=== PATIENT | female | born 2000 | race Caucasian/White ===

== ENCOUNTER 2021-03-18 06:20 | Observation (INO) | payer OTHER, SELFPAY ==
[2021-03-18] VITALS (11 sets, daily range): BP systolic 97–145; BP diastolic 54–92; PULSE 76–127; RESP 14–18; TEMP 36.3–37.1; O2SAT 95–99; BMI 25.2
--- NOTE | 2021-03-18 06:31 | CT_ITS ---
STUDY: CT ABDOMEN AND PELVIS WITH CONTRAST REASON FOR EXAM: Female, 20 years old. RLQ abd pain RADIATION DOSAGE (If Supplied By Facility): CTDIvol = ( 14.31 ) mGy, DLP = ( 623.54 ) mGycm TECHNIQUE: Transaxial images were obtained from the dome of the diaphragm to the symphysis pubis without oral contrast. IV 100mL Isovue-370 was administered. Sagittal and coronal images were reconstructed. Individualized dose optimization techniques were used for this CT. COMPARISON: None. FINDINGS: The visualized lung bases are unremarkable. The visualized portions of the heart are within normal limits. Normal liver. Normal gallbladder and extrahepatic biliary system. Normal spleen. Normal pancreas. Normal bilateral adrenal glands. Normal right kidney. Normal left kidney. Normal visualized stomach. Normal small intestine. Normal colon. There is a tubular, thick-walled appendix (>7mm), consistent with acute appendicitis. Normal abdominal aorta. Normal inferior vena cava. Normal retroperitoneum. Normal urinary bladder. Normal visualized uterus. Normal abdominal wall. Normal osseous structures. CT/Abdomen/Pelvis W IV Cont ONLY IMPRESSION: Acute, uncomplicated appendicitis. Electronically Signed: Magdi Patricio MD at 7:26 EDT Tel , Service support ,
--- NOTE | 2021-03-18 06:32 | EDS_ITS ---
HPI HPI - GI History of Present Illness Chief Complaint: Abd Pain Informant: patient Abdominal Pain/Flank Pain Onset: Today Context: Gradual Onset Timing: Continuous Quality: Aching, Cramping and Sharp Location: RLQ Current Severity: Mild Maximum Severity: Mild Worsened by: Not Worsened By Nothing Relieved by: Not Relieved By Nothing Nausea/Vomiting/Emesis GI Symptom: Positive for Nausea; Negative for Vomiting Onset: Today Severity: Mild Diarrhea/Melena/Hematochezia GI Symptom: Positive for Diarrhea; Negative for Melena and Hematochezia Onset: Today Associated Symptoms Associated Symptoms: Negative for Dysuria, Frequency, Hematuria and Urgency Narrative Narrative: Just prior to arrival she developed right lower quadrant sharp and cramping abdominal pain. L in the right lower quadrant. Associated nausea. Mild loose stools. No melena. No fever. No dysuria. Last menstrual period was a month ago. She is never been she is G0, P0. And states she is not sexually active. She is never had any abdominal surgeries. She is concerned she might have an appendicitis.20-year-old female Prior similar symptoms: No Recent Illness/Hospitalization: No PFSH PFSH Medical History History of syncope Home Medications bupropion HCl [Wellbutrin XL] 150 mg PO DAILY 03/18/21 [History Last Taken Unknown] cyproheptadine 4 mg PO QHS 03/18/21 [History Last Taken Unknown] norgestimate-ethinyl estradiol [Harmony] 1 tab PO DAILY 03/18/21 [History Last Taken Unknown] sertraline [Zoloft] 100 mg PO DAILY 03/18/21 [History Last Taken Unknown] Allergy/AdvReac Type Severity Reaction Status Date / Time No Known Allergies Allergy Verified 03/18/21 06:28 Social History Smoking Status: Never smoker ROS ROS ED ROS Narrative Right lower quadrant abdominal pain. Loose stools. Review of Systems ROS Unobtainable: Denies due to encephalopathy Constitutional Constitutional ED: Denies chills or fever(s) ENT ENT ED: Denies ear pain or sore throat Cardiovascular Cardiovascular: Denies chest pain Respiratory/Chest Respiratory/Chest: Denies cough or dyspnea Gastrointestinal Gastrointestinal: Reports abdominal pain and diarrhea; Denies nausea or vomiting Genitourinary Genitourinary ED: Denies dysuria or hematuria Musculoskeletal Musculoskeletal: Denies myalgias Integumentary Denies rash Neurologic Neurologic: Denies headache(s) Psychiatric Psychiatric: Denies depression Endocrine Endocrinology: Denies polyuria Hematologic/Lymphatic Hematologic/Lymphatic: Denies easy bruising Allergic/Immunologic Allergic/Immunologic ED: Denies urticaria EXAM Physical Exam Narrative Exam Narrative: Well-appearing 20-year-old female. Vital signs are stable. She is afebrile. She does look septic or toxic. Exam normal except abdominal exam she has right lower quadrant tenderness. There is no rebound, guarding or rigidity. There is no Brenner sign. Both upper quadrant left lower quadrants are completely unremarkable nontender. There is no hernia or mass. No signs of obstruction. Abdomen is soft with positive bowel sounds. Const Vital Signs: 03/18/21 06:22 Temperature 97.8 F Temperature Source Temporal Pulse Rate 86 Respiratory Rate 17 Blood Pressure 126/85 H Blood Pressure Mean 98 Pulse Ox 97 Oxygen Delivery Method Room Air Positive well nourished and well developed; Negative for obese, cachectic, contractures or unkempt General Appearance ED: well developed and NAD; Negative for unkempt, cachectic, contractures or pallor Nutritional Appearance: Negative for cachectic or obese HEENT Reports moist mucous membranes normocephalic and atraumatic Eyes PERRL and EOMs intact bilaterally Neck no lymphadenopathy, supple and no JVD General: Negative for tenderness Resp normal respiratory effort and clear to auscultation bilaterally Auscultation: Negative for rales, rhonchi or wheezes Cardio regular rate, regular rhythm, S1 normal heart sound, S2 normal heart sound and no murmurs GI non-distended and no masses; Negative for non-tender GI Narrative: Tenderness right lower quadrant only. Inspection: Negative for abdominal distention Auscultation: normoactive bowel sounds; Negative for hyperactive bowel sounds or hypoactive bowel sounds Palpation: soft and tender; Negative for guarding, rigid or rebound tenderness present Back/Spine no CVA tenderness Extremity full ROM General Extremety ED: Negative for edema or tenderness General Extremity: Negative for edema Neuro moves all extremities Sensorium / Orientation: alert, oriented to person, oriented to place and oriented to time; Negative for lethargic or stuporous Motor Exam: strength 5/5 throughout Psych mental status grossly normal Appearance: Negative for unkempt Skin no wounds General Skin Exam: Negative for jaundice or pallor Lesions: no lesions Rashes: no rashes MDM MDM MDM Narrative Medical decision making narrative: 20-year-old female with less than a half an hour of right lower quadrant abdominal pain. Associated nausea and diarrhea. Appendicitis versus UTI versus viral syndrome versus other etiologies. Screening labs and CAT scan being obtained. Repeat exam patient doing well at 7:18 AM. She still has only tenderness to her right lower quadrant. There is no peritoneal signs. She denies discussed her labs so far were still awaiting the UA and the reading of the CAT scan. I spoke with Dr. Qian Dubois on-call for general surgery she will admit the patient and set her up for a laparoscopic appendectomy today. Lab Data Attestation: I reviewed the patient's lab results. Lab results narrative: CBC does show an elevated white count of 15.7. Hemoglobin is 14. Electrolytes unremarkable gap of 8 normal creatinine. Liver enzymes are normal. Serum test is negative. Patient has not urinated as of yet. CAT scan is positive for acute appendicitis is read by the radiologist. Reviewed by me. All test results were discussed with the patient. Labs: Laboratory Results - last 24 hr 03/18/21 03/18/21 03/18/21 06:41 06:41 06:41 WBC 15.7 H RBC 4.90 Hgb 14.3 Hct 41.7 MCV 85.1 MCH 29.2 MCHC 34.3 RDW Std Deviation 45.1 H RDW Coeff of Ezequiel 14.5 Plt Count 225 MPV 9.8 Immature Gran % (Auto) 0.400 Neut % (Auto) 72.3 H Lymph % (Auto) 21.1 Alfalfa % (Auto) 5.2 Eos % (Auto) 0.7 Baso % (Auto) 0.3 Absolute Neuts (auto) 11.3 H Absolute Lymphs (auto) 3.31 Nucleated RBC % 0 Sodium 139 Potassium 3.5 Chloride 108 H Carbon Dioxide 23.0 Anion Gap 8 BUN 8 Creatinine 0.83 Estim Creat Clear Calc 100.37 Est GFR (MDRD) Af Amer 111 Est GFR (MDRD) Non-Af 91 BUN/Creatinine Ratio 9.6 L Glucose 101 Calcium 8.9 Total Bilirubin 0.30 AST 17 ALT 18 Alkaline Phosphatase 80 Total Protein 7.0 Albumin 3.4 Globulin 3.6 Albumin/Globulin Ratio 0.9 Serum , Qual NEGATIVE Radiography Diagnostic Testing: Radiology Impression Abdomen/Pelvis CT 03/18/21 06:31 IMPRESSION: Acute, uncomplicated appendicitis. Electronically Signed: Magdi Patricio MD at 7:26 EDT Tel , Service support , Discharge Plan Triage Chief Complaint: Abd Pain ED Provider: Nick Henry Dx/Rx/DC Orders Clinical Impression: Abdominal pain, Acute appendicitis Prescriptions: No Action norgestimate-ethinyl estradiol [Harmony] 0.25-35 mg-mcg Tablet 1 tab PO DAILY RF: 0 sertraline [Zoloft] 100 mg Tablet 100 mg PO DAILY RF: 0 cyproheptadine 4 mg Tablet 4 mg PO QHS RF: 0 bupropion HCl [Wellbutrin XL] 150 mg Tablet Extended Release 24 Hr 150 mg PO DAILY RF: 0 Disposition Disposition: Acute Care Hospital [facility]
[2021-03-18] MEDS: 0.9% Normal Saline 1,000 ML 1000 ML IV (06:47)
[2021-03-18 06:49] LABS: Absolute Lymphocyte Count 3.31 X10^3/uL (0.83-4.51); Absolute Neutrophil Count 11.3 X10^3/uL (2.0-7.7); Basophil# 0.05 X10^3/uL; Basophil% 0.3 % (0-1); Eosinophil# 0.11 X10^3/uL; Eosinophils% 0.7 % (0-5); Hematocrit 41.7 % (37-47); Hemoglobin 14.3 g/dL (12.0-15.0); Lymphocyte # 3.31 X10^3/ul (0.83-4.51); Lymphocyte % 21.1 % (19-41); Mean Corp Hgb Conc 34.3 g/dL (32-36); Mean Corpuscular Hgb 29.2 pg (27.0-32.0); Mean Corpuscular Volume 85.1 fL (81-99); Mean Platelet Vol. 9.8 fl (6.2-12.0); Monocyte# 0.81 X10^3/uL; Monocyte% 5.2 % (0-10); NRBC Flagged by Analyzer 0 % (0-5); Neutrophil # 11.32 X10^3/uL (2.7-7.7); Neutrophil % 72.3 % (47-70); Platelet Count 225 K/mm3 (150-450); RBC Distribution Width CV 14.5 % (11.6-14.6); RBC Distribution Width SD 45.1 fl (35.1-43.9); White Blood Count 15.7 K/mm3 (4.4-11.0)
[2021-03-18 07:06] LABS: ALB/GLOB Ratio 0.9 RATIO (0.9-2.4); AST(SGOT) 17 U/L (15-37); Alanine Aminotransfer ALT/SGPT 18 U/L (13-56); Albumin, Serum 3.4 g/dL (3.2-5.0); Alkaline Phosphatase 80 U/L (45-117); Anion Gap 8 (5-15); BUN 8 mg/dL (7-18); BUN/Creat Ratio 9.6 RATIO (10-20); Calcium,Total 8.9 mg/dL (8.5-10.1); Chloride 108 mmol/L (98-107); Creatinine, Serum 0.83 mg/dL (0.55-1.02); EST Glomerular Filtration Rate 91 mL/min (>60); Est Glom Filt Rate - Afr Amer 111 mL/min (>60); Estimated Creatinine Clearance 100.37 ml/min; Globulin 3.6 g/dL (2.2-4.2); Glucose 101 mg/dL (74-106); Potassium 3.5 mmol/L (3.5-5.1); Sodium Level 139 mmol/L (136-145)
[2021-03-18 07:16] LABS: Internal QC Validated? YES +Cl - CLEAR BKGD; Pregnancy, Serum, hCG Quali. NEGATIVE Negative
--- NOTE | 2021-03-18 08:24 | PCM.HP.STD ---
HPI - General HPI Narrative PATY QURESHI, is a 20 F who presents with sudden onset of RLQ abdominal pain beginning early this morning. No antecedent symptoms noted. Patient denies fevers. She presented to [facility] ED. Workup - afebrile, elevated WBC of 15.7, CT scan reveals appendicitis. [facility] Medical History History of syncope Home Medications bupropion HCl [Wellbutrin XL] 150 mg PO DAILY 03/18/21 [History Last Taken Unknown] cyproheptadine 4 mg PO QHS 03/18/21 [History Last Taken Unknown] norgestimate-ethinyl estradiol [Harmony] 1 tab PO DAILY 03/18/21 [History Last Taken Unknown] sertraline [Zoloft] 100 mg PO DAILY 03/18/21 [History Last Taken Unknown] Allergy/AdvReac Type Severity Reaction Status Date / Time No Known Allergies Allergy Verified 03/18/21 06:28 Social History Smoking Status: Never smoker Vital Signs Vital Signs Vital Signs: 03/18/21 06:22 Temperature 97.8 F Temperature Source Temporal Pulse Rate 86 Respiratory Rate 17 Blood Pressure 126/85 H Blood Pressure Mean 98 Pulse Ox 97 Oxygen Delivery Method Room Air Weight Weight: 71 kg Body Mass Index (BMI) 25.2 Physical Exam Const no apparent distress Resp normal respiratory effort Cardio regular rate GI soft to palpation Palpation: tender RLQ and Rovsing's sign Extremity normal to inspection and no clubbing, cyanosis or edema Results Lab / Micro Data Result Diagrams: 03/18/21 06:41 03/18/21 06:41 Labs: Laboratory Results - last 24 hr 03/18/21 06:41: WBC 15.7 H, RBC 4.90, Hgb 14.3, Hct 41.7, MCV 85.1, MCH 29.2, MCHC 34.3, RDW Std Deviation 45.1 H, RDW Coeff of Ezequiel 14.5, Plt Count 225, MPV 9.8, Immature Gran % (Auto) 0.400, Neut % (Auto) 72.3 H, Lymph % (Auto) 21.1, Greer % (Auto) 5.2, Eos % (Auto) 0.7, Baso % (Auto) 0.3, Absolute Neuts (auto) 11.3 H, Absolute Lymphs (auto) 3.31, Nucleated RBC % 0 03/18/21 06:41: Sodium 139, Potassium 3.5, Chloride 108 H, Carbon Dioxide 23.0, Anion Gap 8, BUN 8, Creatinine 0.83, Estim Creat Clear Calc 100.37, Est GFR (MDRD) Af Amer 111, Est GFR (MDRD) Non-Af 91, BUN/Creatinine Ratio 9.6 L, Glucose 101, Calcium 8.9, Total Bilirubin 0.30, AST 17, ALT 18, Alkaline Phosphatase 80, Total Protein 7.0, Albumin 3.4, Globulin 3.6, Albumin/Globulin Ratio 0.9 03/18/21 06:41: Serum , Qual NEGATIVE Radiology Impression Abdomen/Pelvis CT 03/18/21 06:31 IMPRESSION: Acute, uncomplicated appendicitis. Electronically Signed: Magdi Patricio MD at 7:26 EDT Tel , Service support , Assessment & Plan Assessment/Plan (1) Acute appendicitis: QUALIFIERS: Acute appendicitis type: unspecified acute appendicitis type Qualified Code(s): K35.80 - Unspecified acute appendicitis PLAN: Plan: To OR for laparoscopic appendectomy I have discussed above with patient and her mother who is present with her. I have counseled them as to the risks of the procedure, including but not limited to: infection, bleeding, perforation, incisional scars, injury to bowel/bladder, injury to any intraabdominal organs, intraabdominal abscess/bleeding, incisional hernias, complications of anesthesia, etc. - they understand. The patient wishes to proceed. I have answered all their questions and they have no further questions
--- NOTE | 2021-03-18 09:40 | APP_PTH ---
PATIENT: PATY QURESHI LOC: [facility] U#:[id number] AGE/SX: ROOM: MS316 RE03/18/[address]: Dr. Qian Dubois MD : 2000 BED: 1 DIS: 03/18/2021 SPEC #: [id number] RECD: 03/19/21 07:40 STATUS: KATIA KENNEDY #: [id number] WILFREDO: 03/18/21 09:[address]: Qian Dubois DEPT: SURGICAL PATHOLOGY RECD BY: Myriam Membreno Tissues: Appendix, NOS Procedures: Surgery Specimen Level III HEADER OPERATION: Laparoscopic appendectomy PRE-OP DIAGNOSIS: Acute appendicitis TISSUE SUBMITTED: Appendix MICROSCOPIC DIAGNOSIS Appendix, appendectomy: Acute appendicitis. AM:adrián 03/20/2021 MICROSCOPIC DESCRIPTION Slides are reviewed. GROSS DESCRIPTION Received in fixative is one container labeled with the patient's name and designated appendix. The specimen consists of an appendix measuring 9 cm in length and 0.7 cm in diameter. No gross perforations are evident. No mass lesion is identified. Pipe Machine Operator sections are submitted in two cassettes. / AM:adrián 03/19/21 TC:2 [facility]: [id number]
[2021-03-18 10:01] LABS: Mucous, Urine 0 SEEN /hpf (<or=2+); Red Blood Cells-Urine 0 SEEN /hpf (0-5); White Blood Cells 0 SEEN /hpf (0-5)
[2021-03-18 10:05] LABS: Color, Urine Yellow (Yellow); Glucose, Dipstick Normal (Normal); Ketone-Dipstick Negative (Negative); Leukocyte Esterase-Dipstick Negative /ul (Negative); Nitrite-Dipstick Negative (Negative); Occult Blood-Urine Negative /ul (Negative); Protein-Dipstick Negative (Negative); Urine Bilirubin Dipstick Negative (Negative); Urine Clarity Clear (Clear); Urine Urobilinogen Normal (Normal); Urine pH 6.5 (5.0 - 8.0)
[2021-03-18 10:19] LABS: Bacteria RARE /hpf (None Seen); Squamous Epithelial Cells - UA 0-5 SEEN /hpf (5-10)
[2021-03-18] MEDS: Lidocaine 1% /Epi 1:100 (20ml) 20 ML Vial (10:40)
--- NOTE | 2021-03-18 11:08 | OP.PCM_ITS ---
Report of Operation Date of Procedure: 03/18/21 Pre-Operative Diagnosis: acute appendicitis by CT scan Post-Operative Diagnosis: same Surgery/Procedure Performed:: laparoscopic appendectomy Description of Surgical Findings:: injected appearing appendix, cloudy peritoneal fluid in pelvis Surgeon: Qian Dubois Type of Anesthesia: General Anesthesiologist: Tony Mckee Specimen's removed: appendix Drains: none Estimated Blood Loss (mL): < 10 ml Fluids Replaced: 700 ml Description of Procedure: After informed consent was obtained, the patient was brought into the Operating Room. Appropriate time out protocol was followed. The patient was placed in the supine position on the operating table. The patient was then placed under general anesthesia by the anesthesia provider. The patient?s abdomen was then prepped with a sterile surgical skin preparation and sterile surgical drapes were placed. The infraumbilical skin fold was grasped with penetrating towel clamps and the skin and subcutaneous tissues were infiltrated with 1% xylocaine with epinephrine. A incision was then made with a 15 blade scalpel. A Veress needle was then inserted into the intraabdominal cavity and checked to be in the proper position with a normal saline drop test. A CO2 pneumoperitoneum was then created. Once this was achieved, the Veress needle was removed and a 5 mm trocar was placed in its stead. A 5 mm laparoscope was then inserted into the trocar. Careful examination of the intraabdominal contents was then done. There was no evidence of injury to any internal organs from placement of the Veress needle or the trocar. Under direct visualization, a 12mm suprapubic trocar and a 5mm left lower quadrant trocar was then placed into the intraabdominal cavity. The skin and subcutaneous tissues at these sites were first infiltrated with 1% xylocaine with epinephrine. Attention was then directed to the right lower quadrant. The appendix was visualized. The appendix appeared enlarged/edematous/injected. There was c loudy purulent appearing fluid in the pelvis. The mesentery of the appendix was taken down by cauterizing the tissue from the free edge to the base of the appendix using the Harmonic scalpel. Once the base of the appendix was freed of surrounding tissues, then the linear gastrointestinal stapling device was brought into the abdominal cavity via the 12mm port and placed across the base of the appendix. The stapling device was fired, thus stapling across the base of the appendix and transecting it simultaneously. There was no evidence of perforation of the appendix. There was cloudy/purulent peritoneal fluid noted. The pelvic cavity was vigorously irrigated with normal saline and all irrigant was aspirated out. The appendix was placed in an Endobag and this was brought out through the suprapubic trocar. The appendix was forwarded to Pathology for analysis. The appendiceal stump was carefully examined. There was slight oozing across the staple line, this was controlled with placement of surgicel. No evidence of fecal leakage. The surrounding tissues were also examined and there was no evidence of any active bleeding or fecal/bile leakage. The intraabdominal cavity was examined and there was no evidence of any further inflammation or tissue abnormality. The CO2 pneumoperitoneum was released and all trocars were removed intact. The suprapubic fascia was reapproximated with a figure-of-8 vicryl suture. All skin incisions were reapproximated with monocryl suture. Cavilon and steristrips were applied to reinforce skin closure and proper sterile dressings were placed. Sponge, needle, and instrument count were verified and correct at the time of skin closure. The patient was then extubated and brought to the Recovery Room in stable condition. Complications none noted Admit VTE Documentation VTE Present on Admission: Yes VTE Mechan Device Prophylaxis: SCD's
[2021-03-18] MEDS: 0.9% Normal Saline 1,000 ML 125 ML IV (12:45)
--- NOTE | 2021-03-18 13:34 | DCINST_ITS ---
Discharge Instructions Follow Up Care Test Results: Test results from this visit will be discussed in further detail at your follow-up appointment, if applicable. Discharge Plan Admission Admit Date/Time: 03/18/21 08:24 Attending Provider: Qian Dubois Instructions Additional Instructions / Restrictions: Recommended pain control regimen - May take 600 mg ibuprofen (Motrin) and then in 3-4 hours, may take 650 mg acetaminophen (Tylenol), then in 3-4 hours may take 600 mg ibuprofen, then in 3- 4 hours may take 650 mg acetaminophen and so on for 2-3 days May take narcotic pain medication for pain that is not controlled by above and at night for comfort through the night Leave dressings in place May shower, do not scrub in the areas of the dressings as they may unravel. Do not soak - no tub baths/swimming Ice applied to areas of discomfort may help No lifting/pushing/pulling greater than 20 pounds for two weeks Regular diet as tolerated, drink plenty of fluids. Avoid carbonated beverages for a few days as this will cause abdominal bloating and thus discomfort after our surgery. Please call my office for an appointment to see me in 1-2 weeks. Office number is If any questions, please call my office at and ask the chief airline radio operator for the general surgery nurses desk Discharge Orders/Prescriptions Prescriptions: New hydrocodone-acetaminophen 5-325 mg tablet 1 tab PO Q8H 5 Days Qty: 15 RF: 0 No Action norgestimate-ethinyl estradiol [Harmony] 0.25-35 mg-mcg Tablet 1 tab PO DAILY RF: 0 sertraline [Zoloft] 100 mg Tablet 100 mg PO DAILY RF: 0 cyproheptadine 4 mg Tablet 4 mg PO QHS RF: 0 bupropion HCl [Wellbutrin XL] 150 mg Tablet Extended Release 24 Hr 150 mg PO DAILY RF: 0
[2021-03-18] MEDS: Acetaminophen 325 MG Tablet 650 MG PO (15:00)
== END 2021-03-18 16:30 | disposition home or self-care (01) ==
LOC: ED 07:50 → SDC 08:06 → MS3 10:49
PROVIDERS: Admitting Provider Surgery; Emergency Provider Emergency Medicine; Visit Provider Surgery
PROC: 0DTJ4ZZ Resection of Appendix, Percutaneous Endoscopic Approach (ICD-10-PCS; CPT 44970; principal; 2021-03-18 09:40)
DX: K35.80 Unspecified acute appendicitis (principal); F41.9 Anxiety disorder, unspecified; F32.9 Major depressive disorder, single episode, unspecified; Z79.899 Other long term (current) drug therapy
CPT/HCPCS: 00840; 44970; 74177; 80053; 81001; 84703; 85025; 87426; 88304; 96361; 96365; 96366; 99251; 99285; J7030; Q9967; A4216; G0463; J2405

== ENCOUNTER 2021-10-28 22:21 | Emergency (ER) | payer OTHER, SELFPAY ==
[2021-10-28 22:22] VITALS: BP 138/96; PULSE 140; RESP 18; TEMP 36.6; O2SAT 99; BMI 24.2
--- NOTE | 2021-10-28 22:43 | EKG12_ITS ---
Test Reason : SYNCOPE Blood Pressure : / mmHG Vent. Rate : 135 BPM Atrial Rate : 135 BPM P-R Int : 160 ms QRS Dur : 068 ms QT Int : 268 ms P-R-T Axes : 059 070 013 degrees QTc Int : 402 ms Sinus tachycardia Otherwise normal ECG Confirmed by ANURAG CELESTIN, THOMAS ([id number]), photo editor EWELINA MARRERO ([id number]) on 10/29/2021 2:01:24 PM Referred By: LI Confirmed By:THOMAS OSBORN MD
--- NOTE | 2021-10-28 22:46 | EX.ED.DYSGE1 ---
HPI History of Present Illness Chief Complaint: Syncope Informant: patient Narrative Narrative: Patient states she is here to get fluids. She has a history of vasovagal syncope. She felt like she was going to have this today. She is graduating from college. She may have been drinking a little bit less. She states normally if she gets dehydrated her symptoms get worse. She went to the health center. They checked her for COVID and they referred her here when it was positive. Patient is not having dyspnea chest pain palpitations shortness of breath fevers or muscle aches. No nausea vomiting diarrhea. She has never had a PE or DVT. She states her normal heart rates about 110. She is always fast and it is faster around times where she has syncope. She has syncope a couple times a month. Fluids makes her symptoms better. [facility] Medical History Anxiety Depression History of syncope Home Medications bupropion HCl [Wellbutrin XL] 150 mg PO DAILY 03/18/21 [History Last Taken Unknown] norgestimate-ethinyl estradiol [Harmony] 1 tab PO DAILY 03/18/21 [History Last Taken Unknown] Allergy/AdvReac Type Severity Reaction Status Date / Time peanut Allergy Anaphylaxis Verified 10/28/21 22:26 Social History Smoking Status: Never smoker ROS ROS ED Constitutional Constitutional ED: Denies chills, fever(s) or sweats Eyes Eyes: Denies blurry vision ENT ENT ED: Denies rhinorrhea or sore throat Cardiovascular Cardiovascular: Denies chest pain, palpitations or racing heartbeat Respiratory/Chest Respiratory/Chest: Denies cough, dyspnea or sputum Gastrointestinal Gastrointestinal: Denies diarrhea, nausea or vomiting Genitourinary Genitourinary ED: Denies dysuria Musculoskeletal Musculoskeletal: Denies arthralgias or myalgias Integumentary Denies rash Neurologic Neurologic: Denies headache(s), paresthesias or weakness Psychiatric Psychiatric: Reports anxiety and depression Endocrine Endocrinology: Denies polydipsia or polyuria Allergic/Immunologic Allergic/Immunologic ED: Denies urticaria EXAM Physical Exam Const Vital Signs: 10/28/21 22:22 10/28/21 22:48 10/29/21 00:26 Temperature 97.9 F Temperature Source Temporal Pulse Rate 140 H Respiratory Rate 18 16 Respiratory Effort Normal Blood Pressure 138/96 H Blood Pressure Mean 110 Pulse Ox 99 98 Oxygen Delivery Method Room Air Room Air Positive well nourished and well developed General Appearance ED: well developed and NAD HEENT Reports dry mucous membranes Mouth ED: Yes dry mucous membranes Mouth: dry mucous membranes Eyes General Eye ED: Negative for pale conjunctiva Neck no JVD Chest Wall inspection of chest normal Resp normal respiratory effort and clear to auscultation bilaterally Effort and Inspection: pain with movement Cardio regular rhythm Rate: tachycardic GI normal to inspection, nondistended, normoactive bowel sounds, non-tender and non-distended Palpation: soft Back/Spine no CVA tenderness Extremity normal to inspection Extremity Narrative: No tenderness, swelling, distended veins, cord or asymmetry. General Extremety ED: Negative for edema or tenderness General Extremity: Negative for edema Neuro oriented x3 Sensorium / Orientation: alert Psych mental status grossly normal Skin no rashes or lesions noted and no wounds MDM MDM MDM Narrative Medical decision making narrative: This patient initially only wanted IV fluids. I explained that her presentation is a little bit more concerning. I was able to convince her to get some blood work. Her electrolytes liver function test all look good. is negative. CBC is normal. Her COVID test was positive. Chest x-ray was negative. Patient was given IV fluids. When I went to see her again she stated that she feels the best that she has felt in a long time. Her heart rate is still about 115. However she says a lot of times her heart rate is about 110?. We had a long talk about COVID and pulmonary embolus. Patient has no recent travel surgery immobilization personal or family history of DVT or PE. She is on control. She does have COVID. But at no point has she had chest pain palpitations shortness of breath or leg swelling. Her near syncopal symptoms are typical for her and are resolved with fluids. She does not really want to do further work-up. I think in this unique case this is reasonable. If she develops any of the above symptoms she needs to return. Lab Data Attestation: I reviewed the patient's lab results. Labs: Laboratory Results - last 24 hr 10/28/21 10/28/21 10/28/21 23:00 23:00 23:00 WBC RBC Hgb Hct MCV MCH MCHC RDW Std Deviation RDW Coeff of Ezequiel Plt Count MPV Immature Gran % (Auto) Neut % (Auto) Lymph % (Auto) Twiggs % (Auto) Eos % (Auto) Baso % (Auto) Absolute Neuts (auto) Absolute Lymphs (auto) Nucleated RBC % Sodium 137 Potassium 3.7 Chloride 107 Carbon Dioxide 21.0 Anion Gap 9 BUN 10 Creatinine 0.98 Estim Creat Clear Calc 84.29 Est GFR (MDRD) Af Amer 91 Est GFR (MDRD) Non-Af 75 BUN/Creatinine Ratio 10.2 Glucose 119 H Calcium 8.9 Total Bilirubin 0.20 AST 17 ALT 17 Alkaline Phosphatase 71 Total Protein 7.2 Albumin 3.8 Globulin 3.4 Albumin/Globulin Ratio 1.1 Serum , Qual NEGATIVE COVID-19 (PEDRO) Positive 10/28/21 23:55 WBC 6.3 RBC 4.42 Hgb 13.5 Hct 40.0 MCV 90.5 MCH 30.5 MCHC 33.8 RDW Std Deviation 43.9 RDW Coeff of Ezequiel 13.2 Plt Count 189 MPV 10.4 Immature Gran % (Auto) 0.200 Neut % (Auto) 83.6 H Lymph % (Auto) 4.4 L Twiggs % (Auto) 11.5 H Eos % (Auto) 0.0 Baso % (Auto) 0.3 Absolute Neuts (auto) 5.3 Absolute Lymphs (auto) 0.28 L Nucleated RBC % 0 Sodium Potassium Chloride Carbon Dioxide Anion Gap BUN Creatinine Estim Creat Clear Calc Est GFR (MDRD) Af Amer Est GFR (MDRD) Non-Af BUN/Creatinine Ratio Glucose Calcium Total Bilirubin AST ALT Alkaline Phosphatase Total Protein Albumin Globulin Albumin/Globulin Ratio Serum , Qual COVID-19 (PEDRO) Radiography Diagnostic Testing: Clinical Impression(s) from Imaging Studies Chest X-Ray 10/28/21 23:20 IMPRESSION: 1. No radiographic evidence of acute cardiopulmonary disease. Electronically Signed: Glen Wick DO at 23:29 EDT , EKG Initial EKG: Comments: EKG done for tachycardia and near syncope read by me shows sinus rhythm with tachycardic rate at 135. No ectopy. No acute ST elevation or depression. NM interval, QRS duration and QTc normal. Discharge Plan Triage Chief Complaint: Syncope ED Provider: Anshul Keith Dx/Rx/DC Orders Clinical Impression: COVID-19, Hx of syncope Instructions: Coronavirus Disease 2019 (COVID-19): Caring for Yourself or Others Prescriptions: No Action norgestimate-ethinyl estradiol [Harmony] 0.25-35 mg-mcg Tablet 1 tab PO DAILY RF: 0 bupropion HCl [Wellbutrin XL] 150 mg Tablet Extended Release 24 Hr 150 mg PO DAILY RF: 0 Primary Care Provider: Care Physician,No Primary Referrals: Dave Kumar MD [STAFF PHYSICIAN] - 3-5 Days if not improving Care Physician,No Primary [Primary Care Provider] - Disposition Disposition: Home, Self Care
[2021-10-28] MEDS: 0.9% Normal Saline 1,000 ML 1000 ML IV (23:13)
--- NOTE | 2021-10-28 23:20 | RAD_ITS ---
INDICATION: covid EXAMINATION/TECHNIQUE: X-RAY - XR Chest 1 View COMPARISON: None. FINDINGS: LINES/DEVICES: None. LUNGS: Symmetric normal lung volumes. No airspace opacity or abnormal interstitial pattern. No nodule or mass. No pleural effusion or pneumothorax. MEDIASTINUM AND CARDIOVASCULAR STRUCTURES: Normal size and contour of the cardiomediastinal silhouette. No evidence of pulmonary vascular congestion. BONES AND SOFT TISSUES: No abnormality within limits of the exam. RAD/Chest 1 View (Portable) IMPRESSION: 1. No radiographic evidence of acute cardiopulmonary disease. Electronically Signed: Glen Wick DO at 23:29 EDT ,
[2021-10-28 23:22] LABS: Internal QC Validated? YES +Cl - CLEAR BKGD; Pregnancy, Serum, hCG Quali. NEGATIVE Negative
--- NOTE | 2021-10-28 23:24 | ED.RN ---
multiple unsuccessful attempts for IV at this time. Bloodwork has been obtained. Dr. Keith notified of unsuccessful attempts. Patient given water and zenaida crackers for PO challenge. Patient informed to sip on water and slowly eat zenaida crackers. Emesis bag given
[2021-10-28 23:29] LABS: ALB/GLOB Ratio 1.1 RATIO (0.9-2.4); AST(SGOT) 17 U/L (15-37); Alanine Aminotransfer ALT/SGPT 17 U/L (13-56); Albumin, Serum 3.8 g/dL (3.2-5.0); Alkaline Phosphatase 71 U/L (45-117); Anion Gap 9 (5-15); BUN 10 mg/dL (7-18); BUN/Creat Ratio 10.2 RATIO (10-20); Calcium,Total 8.9 mg/dL (8.5-10.1); Chloride 107 mmol/L (98-107); Creatinine, Serum 0.98 mg/dL (0.55-1.02); EST Glomerular Filtration Rate 75 mL/min (>60); Est Glom Filt Rate - Afr Amer 91 mL/min (>60); Estimated Creatinine Clearance 84.29 ml/min; Globulin 3.4 g/dL (2.2-4.2); Glucose 119 mg/dL (74-106); Potassium 3.7 mmol/L (3.5-5.1); Protein, Total 7.2 g/dL (6.4-8.2); Sodium Level 137 mmol/L (136-145)
[2021-10-29 00:20] LABS: Absolute Lymphocyte Count 0.28 X10^3/uL (0.83-4.51); Absolute Neutrophil Count 5.3 X10^3/uL (2.0-7.7); Basophil# 0.02 X10^3/uL; Basophil% 0.3 % (0-1); Hemoglobin 13.5 g/dL (12.0-15.0); Lymphocyte # 0.28 X10^3/ul (0.83-4.51); Lymphocyte % 4.4 % (19-41); Mean Corp Hgb Conc 33.8 g/dL (32-36); Mean Corpuscular Hgb 30.5 pg (27.0-32.0); Mean Corpuscular Volume 90.5 fL (81-99); Mean Platelet Vol. 10.4 fl (6.2-12.0); Monocyte# 0.73 X10^3/uL; Monocyte% 11.5 % (0-10); NRBC Flagged by Analyzer 0 % (0-5); Neutrophil # 5.29 X10^3/uL (2.7-7.7); Neutrophil % 83.6 % (47-70); POSITIVE DIFFERENTIAL YES; Platelet Count 189 K/mm3 (150-450); RBC Distribution Width CV 13.2 % (11.6-14.6); RBC Distribution Width SD 43.9 fl (35.1-43.9); Red Blood Count 4.42 M/mm3 (4.2-5.4); White Blood Count 6.3 K/mm3 (4.4-11.0)
[2021-10-29 00:24] LABS: Differential Indicated SCAN CRITERIA MET
[2021-10-29 00:26] VITALS: RESP 16; O2SAT 98
[2021-10-29 00:48] LABS: Probe Check PASS; Specimen Processing Control PASS
[2021-10-29 02:13] VITALS: BP 113/68; PULSE 120; RESP 16; O2SAT 97
== END 2021-10-29 02:25 | disposition home or self-care (01) ==
PROVIDERS: Emergency Provider Emergency Medicine; Visit Provider Emergency Medicine
DX: U07.1 COVID-19 (principal); R55 Syncope and collapse; F41.9 Anxiety disorder, unspecified; F32.A Depression, unspecified; Z79.899 Other long term (current) drug therapy
CPT/HCPCS: 71045; 80048; 80053; 84703; 85025; 87635; 93005; 96360; 96361; 99284; J7030; A4216; U0003; U0005